=== PATIENT | male | born 2005 | race Caucasian/White ===

== ENCOUNTER 2024-06-11 11:25 | Observation (INO) | payer OTHER ==
[~2024-06-11 11:25] MED LIST: Iopamidol-370 76% 500 ML MDV (1 ML CHARGE) ONE
[2024-06-11 11:49] LABS: Bacteria/HPF None Seen HPF (None Seen); Bilirubin Negative (Negative); Blood, Urine Negative (Negative); CAUTI Indications for Culture Pelvic or flank pain; Clarity Turbid (Clear); Glucose, Urine (Dipstick) Normal (Negative); Ketone, Urine Negative (Negative); Leukocyte Negative Leu/uL (Negative); Nitrite Negative (Negative); Protein, Urine (Dipstick) 30 mg/dL (Neg-Trace); RBC/HPF 0-3 HPF (0-3); Specific Gravity, Urine 1.028 (1.002-1.036); Squamous Epithelial 0-3 HPF (0-3); Urobilinogen Normal mg/dL (Less than 2); WBC/HPF 0-3 HPF (0-3)
[2024-06-11 11:52] LABS: Urine Culture Reflex No No
[2024-06-11 12:38] LABS: #Basophils Less than 0.03 10x3/uL (0.0-0.2); %Basophils 0.2 % (0.0-1.0); %Eosinophils 0.8 % (0.0-10.0); %Lymphocytes 8.4 % (28.0-48.0); %Monocytes 8.6 % (0.0-4.0); %Neutrophils 81.7 % (31.0-61.0); Hematocrit 45.6 % (42.0-52.0); Hemoglobin 15.1 g/dL (14.0-18.0); Mean Corpuscular HGB CONC 33.1 g/dL (32.0-36.0); Mean Corpuscular Hemoglobin 26.6 pg (25.0-35.0); Mean Corpuscular Volume 80.3 fL (78.0-98.0); Mean Platelet Volume 9.8 fL (7.4-10.4); Platelet Count 169 10x3/uL (130-400); Red Blood Cell (RBC) Count 5.68 mill/uL (4.00-5.20)
[2024-06-11 12:59] LABS: ALT (SGPT) 15 U/L (Less than 45); AST (SGOT) 20 U/L (11-34); Albumin 4.2 g/dL (3.1-4.5); Alkaline Phosphatase 99 U/L (50-130); Anion Gap 10 mmol/L (10-20); BUN (Urea Nitrogen) 11 mg/dL (8.9-20.6); Bilirubin, Total 0.9 mg/dL (0.3-1.2); Calc. Creatinine Clearance 0 mL/min (70-130); Calcium 9.4 mg/dL (7.8-10.44); Carbon Dioxide 25 mmol/L (22-29); Chloride 104 mmol/L (98-107); Estimated GFR 126; Globulin 3.3 g/dL (2.4-3.5); Glucose 99 mg/dL (70-105); Lipase 10 U/L (8-78); Potassium 4.2 mmol/L (3.5-5.1); Protein, Total 7.5 g/dL (6.0-8.3); Sodium 135 mmol/L (136-145)
[2024-06-11] MEDS ORDERED: Morphine 2 MG/ML VIAL ONE ×2 (13:05→13:53)
[2024-06-11] MEDS ORDERED: Glucagon 1 MG/ML KIT IM PRN (14:36)
[2024-06-11] MEDS ORDERED: Ipratropium/Albuterol 3 ML NEB NEB PRN (14:36)
[2024-06-11] MEDS ORDERED: Dextrose 50% Abboject 50 ML SYRINGE SLOW IVP PRN (14:36)
[2024-06-11] MEDS ORDERED: Dextrose 5% in Water 1,000 ML IV PRN (14:36)
[2024-06-11] MEDS ORDERED: hydrALAZINE 20 MG/ML VIAL SLOW IVP PRN (14:36)
[2024-06-11] MEDS ORDERED: Piperacillin/Tazobactam 3.375 GM VIAL ONE (14:37)
[2024-06-11] MEDS ORDERED: Ondansetron PF 4 MG/2 ML Vial ONE ×3 (14:37→18:25)
[2024-06-11] MEDS ORDERED: Sodium Chloride 0.9% 100 ML ONE (14:37)
[2024-06-11 16:08] VITALS: BMI 23.0
[2024-06-11] MEDS: Lactated Ringer's 1,000 ML IV SCH (16:22)
[2024-06-11] MEDS: Ketorolac Tromethamine 30 MG (1 mL) VIAL IVP SCH (17:14)
[2024-06-11] MEDS ORDERED: EPINEPHrine 1 MG/ML VIAL ONE (17:47)
[2024-06-11] MEDS ORDERED: Bupivacaine 0.25% HCL 30 ML VIAL ONE (17:48)
[2024-06-11] MEDS ORDERED: SUCCINYLCHOLINE/SOD CL,ISO/PF 200 MG/10 ML SYRINGE FS ONE (17:59)
[2024-06-11] MEDS ORDERED: PROPOFOL 20 ML ONE (17:59)
[2024-06-11] MEDS ORDERED: fentaNYL PF 100 MCG/2 ML SYRINGE ONE (17:59)
[2024-06-11] MEDS ORDERED: Lidocaine 1% PF 5 ML VIAL ONE (17:59)
[2024-06-11] MEDS ORDERED: Rocuronium Bromide 10 MG/ML (10ML VIAL) ONE (18:25)
[2024-06-11] MEDS: Famotidine 20 MG TAB PO SCH (20:12)
[2024-06-11] MEDS: Famotidine/PF 20 mg/2ml Vial SLOW IVP SCH (20:12)
[2024-06-11] MEDS: traMADol HCl 50 MG TAB PO PRN (20:13)
[2024-06-11] MEDS: HYDROcodone/Acetaminophen 5/325 mg Tablet PO PRN (21:04)
[2024-06-11] MEDS: Morphine 2 MG/ML VIAL SLOW IVP PRN (23:29)
[2024-06-12 00:41] LABS: Chlam.trachomatis by PCR,Urine Not Detected (NotDetected); GC N.gonorrhoeae PCR,UrineVOID Not Detected (NotDetected)
[2024-06-12] MEDS: Acetaminophen 325 MG TAB PO PRN (01:10)
[2024-06-12] MEDS ORDERED: Morphine 4 MG/ML VIAL SLOW IVP PRN (02:37)
[2024-06-12] MEDS: Ondansetron PF 4 MG/2 ML Vial IVP PRN (02:39)
[2024-06-12] MEDS: Morphine 4 MG/ML VIAL SLOW IVP SCH (02:43)
[2024-06-12] MEDS: Ketorolac Tromethamine 30 MG (1 mL) VIAL IVP SCH ×2 (02:43→05:28)
[2024-06-12 05:38] LABS: #Basophils Less than 0.03 10x3/uL (0.0-0.2); #Eosinophils Less than 0.03 10x3/uL (0.0-0.7); %Lymphocytes 5.4 % (28.0-48.0); %Monocytes 6.6 % (0.0-4.0); %Neutrophils 87.9 % (31.0-61.0); Hematocrit 43.9 % (42.0-52.0); Hemoglobin 14.6 g/dL (14.0-18.0); Mean Corpuscular HGB CONC 33.3 g/dL (32.0-36.0); Mean Corpuscular Hemoglobin 26.6 pg (25.0-35.0); Mean Platelet Volume 10.6 fL (7.4-10.4); Platelet Count 166 10x3/uL (130-400); RBC Distribution Width 13.9 % (11.5-14.5); Red Blood Cell (RBC) Count 5.49 mill/uL (4.00-5.20)
[2024-06-12 05:52] LABS: Anion Gap 13 mmol/L (10-20); BUN (Urea Nitrogen) 12 mg/dL (8.9-20.6); Calc. Creatinine Clearance 143 mL/min (70-130); Calcium 8.9 mg/dL (7.8-10.44); Carbon Dioxide 21 mmol/L (22-29); Chloride 103 mmol/L (98-107); Estimated GFR 127; Glucose 88 mg/dL (70-105); Potassium 3.4 mmol/L (3.5-5.1); Sodium 134 mmol/L (136-145)
[2024-06-12 07:41] VITALS: TEMP 98.1
[2024-06-12 11:30] VITALS: BP 132/83
== END 2024-06-12 14:19 | disposition home or self-care (01) ==
LOC: ERS 11:25 → SURG A 14:43
PROVIDERS: ADMIT Surgery; ATTEND Surgery
PROC: 0DTJ4ZZ Resection of Appendix, Percutaneous Endoscopic Approach (ICD-10-PCS; principal; 2024-06-12)
DX: K35.80 Unspecified acute appendicitis (principal); F90.9 Attention-deficit hyperactivity disorder, unspecified type; Z98.890 Other specified postprocedural states; Z79.899 Other long term (current) drug therapy
CPT/HCPCS: 36415; 74177; 76870; 80048; 80053; 81001; 83690; 85025; 87491; 87591; 88304; 93976; 96365; 96375; 96376; G0378; J0171; J0665; J1885; J2270; J2272; J2405; J2543; J2704; Q9967